=== PATIENT | male | born 1945 | race Caucasian/White ===

== ENCOUNTER 2017-05-25 06:25 | Inpatient (IN) | payer MEDICARE ==
[~2017-05-25] VITALS: Ht 170.2 cm; Wt 85.0 kg
[~2017-05-25 06:25] MED LIST: ASPI-1159 PO; ATOR20TA65 PO; CLOP75TA33 PO; DIGO125T82 PO; ENAL20TA PO; GABA-531 PO; METO-539 PO; SITA1TAB4 PO; TAMS0.4C31 PO; TRAM50TA3 PO; ZET10 PO
[2017-05-25] MEDS ORDERED: IODIXANOL 320MG/ML 200ML BOTTLE ONE (08:26)
[2017-05-25] MEDS ORDERED: LIDOCAINE HCL 1% 20ML VIAL (Pyxis) INJ ONE (08:26)
[2017-05-25] MEDS ORDERED: MIDAZOLAM HCL 2 MG/2 ML VIAL ONE (08:39)
[2017-05-25] MEDS ORDERED: FENTANYL CITRATE/PF 50MCG/ML 2ML VIAL ONE (08:39)
[2017-05-25] MEDS ORDERED: IOVERSOL 240MG/ML 100ML BOTTLE IV ONE (08:48)
[2017-05-25] MEDS ORDERED: ASPIRIN 325MG TABLET ONE (09:58)
[2017-05-25] MEDS ORDERED: CLOPIDOGREL 75MG TABLET ONE (09:58)
[2017-05-25] MEDS ORDERED: SODIUM CHLORIDE 0.45% 1,000 ML IV ONE (10:00)
[2017-05-25] MEDS ORDERED: ATROPINE SULFATE 1MG/10ML SYR IV PRN (10:00)
[2017-05-25] MEDS ORDERED: DEXTROSE 50% WATER 50ML SYRINGE IV PRN (10:00)
[2017-05-25] MEDS ORDERED: ACETAMINOPHEN 325MG TABLET PO PRN (10:00)
[2017-05-25] MEDS ORDERED: METOPROLOL TARTRATE 50MG TABLET PO SCH (11:00)
[2017-05-25] MEDS ORDERED: EZETIMIBE 10MG TABLET PO SCH ×2 (11:00→21:00)
[2017-05-25] MEDS: INSULIN LISPRO 100 UNITS/ML SUBCUT SCH ×3 (12:20→21:49)
[2017-05-25] MEDS: BLOOD SUGAR DIAGNOSTIC STRIP TEST SCH ×3 (12:29→20:37)
[2017-05-25] MEDS: DIGOXIN 125MCG TABLET PO SCH (12:37)
[2017-05-25] MEDS: GABAPENTIN 300MG CAPSULE PO SCH ×2 (12:37→17:32)
[2017-05-25] MEDS: TAMSULOSIN HCL 0.4MG SR CAPSULE PO SCH (12:37)
[2017-05-25] MEDS: TRAMADOL 50MG TABLET PO SCH ×2 (12:38→17:00)
[2017-05-25] MEDS ORDERED: HEPARIN SODIUM 1,000 UNIT/1ML VIAL IV ONE (12:57)
[2017-05-25] MEDS ORDERED: NICARDIPINE 100MCG/ML 10ML VIAL (CATH LAB) IV ONE (12:59)
[2017-05-25] MEDS ORDERED: NITROGLYCERIN 50MCG/ML 10ML VIAL (CATH LAB) IV ONE (12:59)
[2017-05-25] MEDS: ENALAPRIL 10MG TABLET PO SCH (17:32)
[2017-05-25] MEDS ORDERED: ATORVASTATIN CALCIUM 20MG TABLET PO SCH (21:00)
[2017-05-25] MEDS ORDERED: ZOLPIDEM TARTRATE 5MG TABLET PO PRN (21:00)
[2017-05-26] MEDS: BLOOD SUGAR DIAGNOSTIC STRIP TEST SCH (06:29)
[2017-05-26] MEDS: INSULIN LISPRO 100 UNITS/ML SUBCUT SCH (06:29)
[2017-05-26 07:05] LABS: BASOPHILS % 0.3 % (0.0-2.0); EOSINOPHILS % 1.3 % (0.0-5.0); HEMATOCRIT. 37.3 % (42.0-52.0); HEMOGLOBIN. 12.9 g/dL (14.0-18.0); LYMPHOCYTES % 24.2 % (20.0-50.0); MEAN CORPUSCULAR HEMOGLOBIN 32.2 pg (28.0-32.0); MEAN CORPUSCULAR VOLUME 92.8 fL (80.0-94.0); MEAN PLATELET VOLUME 8.3 fl (7.4-10.4); MONOCYTES % 8.9 % (2.0-8.0); NEUTROPHILS % 65.3 % (40.0-76.0); PLATELET 98 x1000/uL (130-400); RED BLOOD CELL COUNT 4.03 mill/uL (4.7-6.1); RED CELL DISTRIBUTION WIDTH 13.5 % (11.6-14.6)
[2017-05-26 07:10] LABS: CARBON DIOXIDE 23 mEq/L (21-32); CHLORIDE 107 mEq/L (98-107)
[2017-05-26] MEDS: TRAMADOL 50MG TABLET PO SCH (08:27)
[2017-05-26] MEDS: GABAPENTIN 300MG CAPSULE PO SCH (08:27)
[2017-05-26] MEDS: TAMSULOSIN HCL 0.4MG SR CAPSULE PO SCH (08:28)
[2017-05-26] MEDS ORDERED: ASPIRIN 81MG EC TABLET PO SCH (09:00)
[2017-05-26] MEDS ORDERED: METOPROLOL TARTRATE 25MG TABLET PO SCH (09:00)
[2017-05-26] MEDS ORDERED: MEDICATION NOT ON FORMULARY EA (Enalapril Maleate 1 TAB) PO SCH (09:00)
[2017-05-26] MEDS ORDERED: CLOPIDOGREL 75MG TABLET PO SCH (09:00)
[2017-05-26] MEDS: ENALAPRIL 10MG TABLET PO SCH (09:30)
[2017-05-26] MEDS: DIGOXIN 125MCG TABLET PO SCH (09:30)
[2017-05-26 12:00] VITALS: BP 121/56
== END 2017-05-26 12:40 | disposition home health service (06) | DRG 271 ==
LOC: CCL 06:25 → 3WST 06:26
PROVIDERS: ADMIT Specialist; ATTEND Specialist
PROC: B41F1ZZ Fluoroscopy of Right Lower Extremity Arteries using Low Osmolar Contrast (ICD-10-PCS; principal; 2017-05-25)
PROC: 04CK3ZZ Extirpation of Matter from Right Femoral Artery, Percutaneous Approach (ICD-10-PCS; 2017-05-25)
PROC: 047K3Z1 Dilation of Right Femoral Artery using Drug-Coated Balloon, Percutaneous Approach (ICD-10-PCS; 2017-05-25)
DX: E11.51 Type 2 diabetes mellitus with diabetic peripheral angiopathy without gangrene (principal); I50.22 Chronic systolic (congestive) heart failure; I11.0 Hypertensive heart disease with heart failure; I25.10 Atherosclerotic heart disease of native coronary artery without angina pectoris; E78.5 Hyperlipidemia, unspecified; I25.5 Ischemic cardiomyopathy; N40.0 Benign prostatic hyperplasia without lower urinary tract symptoms; I25.2 Old myocardial infarction; Z87.891 Personal history of nicotine dependence; Z95.1 Presence of aortocoronary bypass graft; Z95.5 Presence of coronary angioplasty implant and graft; Z95.810 Presence of automatic (implantable) cardiac defibrillator; Z79.82 Long term (current) use of aspirin; Z79.899 Other long term (current) drug therapy
CPT/HCPCS: 36415; 37225; 75710; 80048; 82962; 85025; 85347; 85730; C1724; C1725; C1726; C1769; C1887; C1893; C1894; C2623; J1644; J1815; J2250; J3010; J3490; J7030; Q9967

== ENCOUNTER 2017-08-18 12:16 | Inpatient (IN) | payer MEDICARE ==
[~2017-08-18] VITALS: Ht 167.6 cm; Wt 84.5 kg
[~2017-08-18 12:16] MED LIST changes: +IOHEXOL-350 100 ML BOTTLE ONE; -METO-539 PO; +METO50TA5 PO; +SODIUM CHLORIDE 0.9% 10ML VIAL ONE
[2017-08-18 13:19] LABS: BASOPHILS % 0.2 % (0.0-2.0); EOSINOPHILS % 1.2 % (0.0-5.0); HEMATOCRIT. 33.8 % (42.0-52.0); HEMOGLOBIN. 11.7 g/dL (14.0-18.0); LYMPHOCYTES % 24.7 % (20.0-50.0); MEAN CORPUSCULAR HEMOGLOBIN 32.1 pg (28.0-32.0); MEAN CORPUSCULAR VOLUME 92.8 fL (80.0-94.0); MEAN PLATELET VOLUME 8.2 fl (7.4-10.4); NEUTROPHILS % 61.9 % (40.0-76.0); PLATELET 83 x1000/uL (130-400); RED BLOOD CELL COUNT 3.64 mill/uL (4.7-6.1); RED CELL DISTRIBUTION WIDTH 13.2 % (11.6-14.6)
[2017-08-18 13:25] LABS: CLARITY URINE CLEAR (CLEAR); COLOR URINE DARK YELLOW (YELLOW); GLUCOSE URINE 2+ (NEGATIVE); KETONES URINE NEGATIVE (NEGATIVE); LEUKOCYTE ESTERASE URINE NEGATIVE (NEGATIVE); NITRITE URINE NEGATIVE (NEGATIVE); OCCULT BLOOD URINE NEGATIVE (NEGATIVE); PROTEIN URINE 1+ (NEGATIVE); SPECIFIC GRAVITY URINE 1.023 (1.005-1.030)
[2017-08-18 13:27] LABS: CHLORIDE 107 mEq/L (98-107)
[2017-08-18 13:30] LABS: D-DIMER 0.57 mg/L FEU (<0.50); INR 1.1; PARTIAL THROMBOPLASTIN TIME 27.3 sec (23.4-31.0); PROTHROMBIN TIME 11.8 sec (9.4-11.6)
[2017-08-18 13:32] LABS: CARBON DIOXIDE 24 mEq/L (21-32)
[2017-08-18 13:47] LABS: DIGOXIN 0.4 ng/mL (0.9-2.0)
[2017-08-18] MEDS ORDERED: ASPIRIN 325MG TABLET PO ONE (14:00)
[2017-08-18] MEDS ORDERED: ENOXAPARIN 80MG/0.8ML SYR SUBCUT SCH (15:15)
[2017-08-18 20:00] VITALS: BP 120/60
[2017-08-18 22:00] VITALS: BP 124/60
[2017-08-18] MEDS ORDERED: BISO5TAB13 PO (22:13)
[2017-08-18] MEDS ORDERED: FINA5TAB11 PO (22:13)
[2017-08-18] MEDS ORDERED: PROT20 PO (22:13)
[2017-08-18] MEDS ORDERED: VALS40TA4 PO (22:13)
[2017-08-18] MEDS ORDERED: SITA1TBM4 PO (22:13)
[2017-08-18] MEDS ORDERED: AMI2 PO (22:13)
[2017-08-18] MEDS ORDERED: CLONIDINE 0.1MG TABLET PO PRN (23:15)
[2017-08-18] MEDS ORDERED: ONDANSETRON HCL 4MG/2ML VIAL IV PRN (23:15)
[2017-08-18] MEDS ORDERED: DIPHENHYDRAMINE 50MG/ML VIAL IV PRN (23:15)
[2017-08-18] MEDS ORDERED: ACETAMINOPHEN 325MG TABLET PO PRN (23:15)
[2017-08-18] MEDS ORDERED: MAGNESIUM/ALUMINUM HYDROXIDE/SIMETHICONE 30ML UDC PO PRN (23:15)
[2017-08-19] VITALS (13 sets, daily range): BP systolic 108–149; BP diastolic 53–85
[2017-08-19] MEDS ORDERED: MAGNESIUM/ALUMINUM HYDROXIDE/SIMETHICONE 30ML UDC PO PRN (00:30)
[2017-08-19] MEDS ORDERED: ONDANSETRON HCL 4MG/2ML VIAL IV PRN (00:30)
[2017-08-19] MEDS ORDERED: DIPHENHYDRAMINE 50MG/ML VIAL IV PRN (00:30)
[2017-08-19] MEDS ORDERED: ACETAMINOPHEN 325MG TABLET PO PRN (00:30)
[2017-08-19] MEDS ORDERED: DEXTROSE 50% WATER 50ML SYRINGE IV PRN (00:45)
[2017-08-19] MEDS ORDERED: GABAPENTIN 300MG CAPSULE PO SCH (06:00)
[2017-08-19] MEDS ORDERED: SODIUM CHLORIDE 0.9% INJ 3ML FLUSH IVF SCH (06:00)
[2017-08-19] MEDS: BLOOD SUGAR DIAGNOSTIC STRIP TEST SCH ×4 (06:05→21:23)
[2017-08-19] MEDS: SODIUM CHLORIDE 0.9% INJ 3ML FLUSH IVF SCH ×3 (06:06→21:30)
[2017-08-19] MEDS: FINASTERIDE 5MG TABLET PO SCH (06:06)
[2017-08-19] MEDS: INSULIN LISPRO 100 UNITS/ML SUBCUT SCH ×4 (08:08→21:29)
[2017-08-19] MEDS: METFORMIN HCL 500MG TABLET PO SCH ×2 (08:10→17:26)
[2017-08-19] MEDS: ASPIRIN 81MG EC TABLET PO SCH (08:11)
[2017-08-19] MEDS: EZETIMIBE 10MG TABLET PO SCH (08:11)
[2017-08-19] MEDS: GABAPENTIN 300MG CAPSULE PO SCH ×3 (08:11→17:27)
[2017-08-19] MEDS: DIGOXIN 125MCG TABLET PO SCH (08:12)
[2017-08-19] MEDS: CLOPIDOGREL 75MG TABLET PO SCH (08:12)
[2017-08-19] MEDS: TAMSULOSIN HCL 0.4MG SR CAPSULE PO SCH (08:12)
[2017-08-19] MEDS: METOPROLOL TARTRATE 50MG TABLET PO SCH (08:12)
[2017-08-19] MEDS ORDERED: METOPROLOL TARTRATE 25MG TABLET PO SCH (09:00)
[2017-08-19] MEDS ORDERED: AMIODARONE HCL 200 MG TABLET PO SCH (09:00)
[2017-08-19] MEDS: TRAMADOL 50MG TABLET PO SCH ×2 (09:00→17:00)
[2017-08-19] MEDS ORDERED: ASPIRIN 81MG EC TABLET PO SCH (09:00)
[2017-08-19] MEDS ORDERED: CLOPIDOGREL 75MG TABLET PO SCH (09:00)
[2017-08-19] MEDS: POTASSIUM CHLORIDE 20MEQ TABLET SR PO SCH (12:42)
[2017-08-19] MEDS: FUROSEMIDE 40MG/4ML VIAL IVP SCH (17:26)
[2017-08-19] MEDS: AMIODARONE HCL 200 MG TABLET PO SCH (17:27)
[2017-08-19] MEDS ORDERED: ATORVASTATIN CALCIUM 20MG TABLET PO SCH (21:00)
[2017-08-19] MEDS: ATORVASTATIN CALCIUM 20MG TABLET PO SCH (21:28)
[2017-08-20] VITALS (13 sets, daily range): BP systolic 110–157; BP diastolic 37–68
[2017-08-20] MEDS: FINASTERIDE 5MG TABLET PO SCH (05:56)
[2017-08-20] MEDS: BLOOD SUGAR DIAGNOSTIC STRIP TEST SCH ×4 (05:56→21:08)
[2017-08-20] MEDS: SODIUM CHLORIDE 0.9% INJ 3ML FLUSH IVF SCH ×3 (05:56→21:10)
[2017-08-20] MEDS: FUROSEMIDE 40MG/4ML VIAL IVP SCH ×2 (05:56→17:32)
[2017-08-20 06:57] LABS: BASOPHILS % 0.3 % (0.0-2.0); EOSINOPHILS % 1.6 % (0.0-5.0); HEMATOCRIT. 34.2 % (42.0-52.0); HEMOGLOBIN. 11.8 g/dL (14.0-18.0); LYMPHOCYTES % 25.1 % (20.0-50.0); MEAN CORPUSCULAR HEMOGLOBIN 32.3 pg (28.0-32.0); MEAN CORPUSCULAR VOLUME 93.3 fL (80.0-94.0); MEAN PLATELET VOLUME 8.6 fl (7.4-10.4); MONOCYTES % 11.2 % (2.0-8.0); NEUTROPHILS % 61.8 % (40.0-76.0); PLATELET 99 x1000/uL (130-400); RED BLOOD CELL COUNT 3.66 mill/uL (4.7-6.1); RED CELL DISTRIBUTION WIDTH 13.6 % (11.6-14.6)
[2017-08-20 07:35] LABS: CARBON DIOXIDE 20 mEq/L (21-32); CHLORIDE 105 mEq/L (98-107)
[2017-08-20] MEDS: METFORMIN HCL 500MG TABLET PO SCH ×2 (07:53→17:31)
[2017-08-20] MEDS: INSULIN LISPRO 100 UNITS/ML SUBCUT SCH ×4 (07:53→21:00)
[2017-08-20 08:05] LABS: TROPONIN I 0.51 ng/mL (0.00-0.04)
[2017-08-20] MEDS: POTASSIUM CHLORIDE 20MEQ TABLET SR PO SCH (08:40)
[2017-08-20] MEDS: TAMSULOSIN HCL 0.4MG SR CAPSULE PO SCH (08:40)
[2017-08-20] MEDS: EZETIMIBE 10MG TABLET PO SCH (08:41)
[2017-08-20] MEDS: GABAPENTIN 300MG CAPSULE PO SCH ×3 (08:41→17:31)
[2017-08-20] MEDS: AMIODARONE HCL 200 MG TABLET PO SCH ×2 (08:41→17:31)
[2017-08-20] MEDS: ASPIRIN 81MG EC TABLET PO SCH (08:41)
[2017-08-20] MEDS: CLOPIDOGREL 75MG TABLET PO SCH (08:41)
[2017-08-20] MEDS: DIGOXIN 125MCG TABLET PO SCH (08:42)
[2017-08-20] MEDS: METOPROLOL TARTRATE 50MG TABLET PO SCH (08:42)
[2017-08-20] MEDS: TRAMADOL 50MG TABLET PO SCH ×2 (08:44→17:00)
[2017-08-20] MEDS ORDERED: MAGNESIUM 2 G PREMIX 50 ML IV NR (09:00)
[2017-08-20] MEDS ORDERED: AMIODARONE HCL 200 MG TABLET PO SCH (09:00)
[2017-08-20 14:17] LABS: INR 1.2
[2017-08-20] MEDS ORDERED: WARFARIN SODIUM 5MG TABLET PO SCH (18:00)
[2017-08-20] MEDS: ATORVASTATIN CALCIUM 20MG TABLET PO SCH (21:10)
[2017-08-21] VITALS (12 sets, daily range): BP systolic 114–144; BP diastolic 47–79
[2017-08-21] MEDS: SODIUM CHLORIDE 0.9% INJ 3ML FLUSH IVF SCH ×3 (05:16→21:14)
[2017-08-21 06:04] LABS: CARBON DIOXIDE 24 mEq/L (21-32); CHLORIDE 104 mEq/L (98-107)
[2017-08-21 06:17] LABS: BASOPHILS % 0.2 % (0.0-2.0); EOSINOPHILS % 1.3 % (0.0-5.0); HEMATOCRIT. 35.3 % (42.0-52.0); HEMOGLOBIN. 12.4 g/dL (14.0-18.0); LYMPHOCYTES % 26.9 % (20.0-50.0); MEAN CORPUSCULAR HEMOGLOBIN 32.3 pg (28.0-32.0); MEAN CORPUSCULAR VOLUME 92.3 fL (80.0-94.0); MEAN PLATELET VOLUME 8.2 fl (7.4-10.4); NEUTROPHILS % 61.6 % (40.0-76.0); PLATELET 116 x1000/uL (130-400); RED BLOOD CELL COUNT 3.83 mill/uL (4.7-6.1); RED CELL DISTRIBUTION WIDTH 13.3 % (11.6-14.6)
[2017-08-21] MEDS: BLOOD SUGAR DIAGNOSTIC STRIP TEST SCH ×4 (06:22→21:13)
[2017-08-21] MEDS: FUROSEMIDE 40MG/4ML VIAL IVP SCH ×2 (06:26→17:13)
[2017-08-21] MEDS: FINASTERIDE 5MG TABLET PO SCH (06:26)
[2017-08-21 06:31] LABS: INR 1.2; PROTHROMBIN TIME 12.1 sec (9.4-11.6)
[2017-08-21] MEDS: INSULIN LISPRO 100 UNITS/ML SUBCUT SCH ×4 (08:03→21:00)
[2017-08-21] MEDS: CLOPIDOGREL 75MG TABLET PO SCH (08:03)
[2017-08-21] MEDS: EZETIMIBE 10MG TABLET PO SCH (08:03)
[2017-08-21] MEDS: TAMSULOSIN HCL 0.4MG SR CAPSULE PO SCH (08:04)
[2017-08-21] MEDS: GABAPENTIN 300MG CAPSULE PO SCH ×3 (08:04→17:10)
[2017-08-21] MEDS: METFORMIN HCL 500MG TABLET PO SCH ×2 (08:04→17:10)
[2017-08-21] MEDS: METOPROLOL TARTRATE 50MG TABLET PO SCH (08:05)
[2017-08-21] MEDS: AMIODARONE HCL 200 MG TABLET PO SCH ×2 (08:05→17:10)
[2017-08-21] MEDS: POTASSIUM CHLORIDE 20MEQ TABLET SR PO SCH (08:05)
[2017-08-21] MEDS: TRAMADOL 50MG TABLET PO SCH ×2 (08:06→16:25)
[2017-08-21] MEDS: DIGOXIN 125MCG TABLET PO SCH (08:06)
[2017-08-21] MEDS: ASPIRIN 81MG EC TABLET PO SCH (08:06)
[2017-08-21] MEDS ORDERED: WARFARIN SODIUM 5MG TABLET PO SCH (18:00)
[2017-08-21] MEDS: ATORVASTATIN CALCIUM 20MG TABLET PO SCH (21:10)
[2017-08-22] VITALS (12 sets, daily range): BP systolic 112–143; BP diastolic 52–87
[2017-08-22] MEDS: AMIODARONE HCL 900 MG in DEXT 5% WATER 482 ML IV SCH ×2 (00:09→06:47)
[2017-08-22 05:57] LABS: INR 1.3; PROTHROMBIN TIME 13.2 sec (9.4-11.6)
[2017-08-22] MEDS: SODIUM CHLORIDE 0.9% INJ 3ML FLUSH IVF SCH ×2 (06:24→21:16)
[2017-08-22] MEDS: FUROSEMIDE 40MG/4ML VIAL IVP SCH ×2 (06:24→16:37)
[2017-08-22] MEDS: BLOOD SUGAR DIAGNOSTIC STRIP TEST SCH ×4 (06:24→21:16)
[2017-08-22] MEDS: FINASTERIDE 5MG TABLET PO SCH ×2 (06:24→08:42)
[2017-08-22] MEDS: INSULIN LISPRO 100 UNITS/ML SUBCUT SCH ×4 (07:20→21:16)
[2017-08-22 07:43] LABS: BASOPHILS % 0.4 % (0.0-2.0); EOSINOPHILS % 1.5 % (0.0-5.0); HEMATOCRIT. 35.5 % (42.0-52.0); HEMOGLOBIN. 12.1 g/dL (14.0-18.0); LYMPHOCYTES % 23.3 % (20.0-50.0); MEAN CORPUSCULAR VOLUME 93.9 fL (80.0-94.0); MEAN PLATELET VOLUME 8.6 fl (7.4-10.4); MONOCYTES % 10.5 % (2.0-8.0); NEUTROPHILS % 64.3 % (40.0-76.0); PLATELET 117 x1000/uL (130-400); RED BLOOD CELL COUNT 3.78 mill/uL (4.7-6.1); RED CELL DISTRIBUTION WIDTH 13.4 % (11.6-14.6)
[2017-08-22 07:52] LABS: CARBON DIOXIDE 21 mEq/L (21-32); CHLORIDE 103 mEq/L (98-107)
[2017-08-22] MEDS: METFORMIN HCL 500MG TABLET PO SCH ×2 (08:40→16:36)
[2017-08-22] MEDS: POTASSIUM CHLORIDE 20MEQ TABLET SR PO SCH (08:40)
[2017-08-22] MEDS: CLOPIDOGREL 75MG TABLET PO SCH (08:40)
[2017-08-22] MEDS: EZETIMIBE 10MG TABLET PO SCH (08:41)
[2017-08-22] MEDS: METOPROLOL TARTRATE 50MG TABLET PO SCH (08:41)
[2017-08-22] MEDS: TAMSULOSIN HCL 0.4MG SR CAPSULE PO SCH (08:41)
[2017-08-22] MEDS: GABAPENTIN 300MG CAPSULE PO SCH ×3 (08:41→16:36)
[2017-08-22] MEDS: AMIODARONE HCL 200 MG TABLET PO SCH ×2 (08:42→16:36)
[2017-08-22] MEDS: ASPIRIN 81MG EC TABLET PO SCH (08:42)
[2017-08-22] MEDS: DIGOXIN 125MCG TABLET PO SCH (08:42)
[2017-08-22] MEDS: TRAMADOL 50MG TABLET PO SCH ×2 (08:49→16:38)
[2017-08-22] MEDS ORDERED: REGADENOSON 0.4 MG/5 ML IV NR (09:45)
[2017-08-22] MEDS ORDERED: REGADENOSON 0.4 MG/5 ML IV ONE (11:40)
[2017-08-22] MEDS ORDERED: WARFARIN SODIUM 7.5MG TABLET PO NR (18:00)
[2017-08-22] MEDS: ATORVASTATIN CALCIUM 20MG TABLET PO SCH (21:17)
[2017-08-23] VITALS (18 sets, daily range): BP systolic 127–151; BP diastolic 57–74
[2017-08-23] MEDS: FINASTERIDE 5MG TABLET PO SCH (06:12)
[2017-08-23] MEDS: SODIUM CHLORIDE 0.9% INJ 3ML FLUSH IVF SCH (06:13)
[2017-08-23] MEDS: BLOOD SUGAR DIAGNOSTIC STRIP TEST SCH ×2 (06:13→11:50)
[2017-08-23] MEDS: FUROSEMIDE 40MG/4ML VIAL IVP SCH (06:41)
[2017-08-23 07:06] LABS: BASOPHILS % 0.3 % (0.0-2.0); EOSINOPHILS % 0.8 % (0.0-5.0); HEMATOCRIT. 35.4 % (42.0-52.0); HEMOGLOBIN. 12.3 g/dL (14.0-18.0); MEAN CORPUSCULAR HEMOGLOBIN 32.1 pg (28.0-32.0); MEAN CORPUSCULAR VOLUME 92.7 fL (80.0-94.0); MEAN PLATELET VOLUME 8.2 fl (7.4-10.4); MONOCYTES % 12.5 % (2.0-8.0); NEUTROPHILS % 63.4 % (40.0-76.0); PLATELET 124 x1000/uL (130-400); RED BLOOD CELL COUNT 3.82 mill/uL (4.7-6.1); RED CELL DISTRIBUTION WIDTH 13.3 % (11.6-14.6)
[2017-08-23] MEDS: INSULIN LISPRO 100 UNITS/ML SUBCUT SCH ×2 (07:20→12:20)
[2017-08-23] MEDS: GABAPENTIN 300MG CAPSULE PO SCH ×2 (07:47→13:23)
[2017-08-23] MEDS: METFORMIN HCL 500MG TABLET PO SCH (07:47)
[2017-08-23] MEDS: CLOPIDOGREL 75MG TABLET PO SCH (07:48)
[2017-08-23] MEDS: AMIODARONE HCL 200 MG TABLET PO SCH (07:48)
[2017-08-23] MEDS: TAMSULOSIN HCL 0.4MG SR CAPSULE PO SCH (07:49)
[2017-08-23] MEDS: DIGOXIN 125MCG TABLET PO SCH (07:49)
[2017-08-23] MEDS: EZETIMIBE 10MG TABLET PO SCH (07:49)
[2017-08-23] MEDS: TRAMADOL 50MG TABLET PO SCH (07:50)
[2017-08-23] MEDS: POTASSIUM CHLORIDE 20MEQ TABLET SR PO SCH (07:50)
[2017-08-23] MEDS: METOPROLOL TARTRATE 50MG TABLET PO SCH (07:51)
[2017-08-23] MEDS: ASPIRIN 81MG EC TABLET PO SCH (07:51)
[2017-08-23] MEDS ORDERED: WARFARIN SODIUM 7.5MG TABLET PO NR (18:00)
== END 2017-08-23 15:30 | disposition home health service (06) | DRG 308 ==
LOC: ER 12:25 → 3WST 17:06 → EDBEDREQ 17:08 → EDBEDREQTM 17:08 → ENRESERV 17:16
PROVIDERS: ADMIT Internal Medicine; ATTEND Internal Medicine
DX: I47.2 Ventricular tachycardia (principal); I50.23 Acute on chronic systolic (congestive) heart failure; E11.51 Type 2 diabetes mellitus with diabetic peripheral angiopathy without gangrene; D69.6 Thrombocytopenia, unspecified; I25.5 Ischemic cardiomyopathy; I51.3 Intracardiac thrombosis, not elsewhere classified; I25.10 Atherosclerotic heart disease of native coronary artery without angina pectoris; I11.0 Hypertensive heart disease with heart failure; N40.0 Benign prostatic hyperplasia without lower urinary tract symptoms; I49.9 Cardiac arrhythmia, unspecified; E78.5 Hyperlipidemia, unspecified; I25.2 Old myocardial infarction; Z79.82 Long term (current) use of aspirin; Z79.899 Other long term (current) drug therapy; Z95.1 Presence of aortocoronary bypass graft; Z95.5 Presence of coronary angioplasty implant and graft; Z95.810 Presence of automatic (implantable) cardiac defibrillator; Z87.891 Personal history of nicotine dependence; Z83.3 Family history of diabetes mellitus; Z82.49 Family history of ischemic heart disease and other diseases of the circulatory system
CPT/HCPCS: 36415; 71010; 71275; 78452; 80048; 80053; 80076; 80162; 81001; 82962; 83036; 83735; 83880; 84484; 85025; 85379; 85610; 85730; 86850; 86900; 93005; 93017; 93306; 93970; 96372; 99285; A4216; A9500; J0282; J1650; J1815; J1940; J2785; J3475; J7060; Q9967

== ENCOUNTER 2017-10-22 11:04 | Emergency (ER) | payer MEDICARE ==
[~2017-10-22] VITALS: Ht 170.2 cm; Wt 84.0 kg
[~2017-10-22 11:04] MED LIST changes: -CLOP75TA33 PO; -ENAL20TA PO; +FINA5TAB11 PO; -IOHEXOL-350 100 ML BOTTLE ONE; -METO50TA5 PO; +PROT20 PO; +SITA1TBM4 PO; -SODIUM CHLORIDE 0.9% 10ML VIAL ONE
[2017-10-22 12:46] LABS: BASOPHILS % 0.3 % (0.0-2.0); EOSINOPHILS % 0.7 % (0.0-5.0); HEMATOCRIT. 26.9 % (42.0-52.0); HEMOGLOBIN. 8.7 g/dL (14.0-18.0); LYMPHOCYTES % 16.8 % (20.0-50.0); MEAN CORPUSCULAR HEMOGLOBIN 30.2 pg (28.0-32.0); MEAN CORPUSCULAR VOLUME 93.1 fL (80.0-94.0); MEAN PLATELET VOLUME 7.5 fl (7.4-10.4); MONOCYTES % 10.5 % (2.0-8.0); NEUTROPHILS % 71.7 % (40.0-76.0); PLATELET 131 x1000/uL (130-400); RED BLOOD CELL COUNT 2.89 mill/uL (4.7-6.1); RED CELL DISTRIBUTION WIDTH 17.3 % (11.6-14.6)
[2017-10-22 12:48] LABS: INR 1.3; PARTIAL THROMBOPLASTIN TIME 34.2 sec (23.4-31.0); PROTHROMBIN TIME 13.8 sec (9.4-11.6)
[2017-10-22 12:49] LABS: CHLORIDE 108 mEq/L (98-107)
[2017-10-22 12:56] LABS: CARBON DIOXIDE 23 mEq/L (21-32)
[2017-10-22 17:06] VITALS: BP 114/79
== END 2017-10-22 17:08 | disposition home or self-care (01) ==
LOC: ER 13:07
DX: D64.9 Anemia, unspecified (principal); R05 Cough; R07.9 Chest pain, unspecified; E11.9 Type 2 diabetes mellitus without complications; I10 Essential (primary) hypertension; Z79.82 Long term (current) use of aspirin; Z87.19 Personal history of other diseases of the digestive system; Z87.891 Personal history of nicotine dependence; Z95.0 Presence of cardiac pacemaker; Z95.810 Presence of automatic (implantable) cardiac defibrillator
CPT/HCPCS: 36415; 71010; 80053; 83690; 85018; 85025; 85610; 85730; 86850; 86900; 99285

== ENCOUNTER 2017-11-22 11:27 | Inpatient (IN) | payer MEDICARE, MEDICAID ==
[~2017-11-22] VITALS: Ht 172.7 cm; Wt 75.3 kg
[2017-11-22] MEDS ORDERED: FINA5TAB11 PO (12:30)
[2017-11-22] MEDS ORDERED: AMIO100T4 PO (12:30)
[2017-11-22] MEDS ORDERED: CLOP75TA33 PO (12:30)
[2017-11-22] MEDS ORDERED: CARV12.545 PO (12:30)
[2017-11-22] MEDS ORDERED: FURO40TA5 PO (12:30)
[2017-11-22] MEDS ORDERED: IRON (12:30)
[2017-11-22] MEDS ORDERED: POTA10CA42 PO (12:30)
[2017-11-22 14:23] LABS: HEMATOCRIT. 28.4 % (42.0-52.0); HEMOGLOBIN. 8.9 g/dL (14.0-18.0); MEAN CORPUSCULAR HEMOGLOBIN 27.5 pg (28.0-32.0); MEAN CORPUSCULAR VOLUME 88.2 fL (80.0-94.0); MEAN PLATELET VOLUME 8.8 fl (7.4-10.4); PLATELET 111 x1000/uL (130-400); RED BLOOD CELL COUNT 3.23 mill/uL (4.7-6.1); RED CELL DISTRIBUTION WIDTH 19.1 % (11.6-14.6)
[2017-11-22 14:32] LABS: INR 1.3; PROTHROMBIN TIME 13.4 sec (9.4-11.6)
[2017-11-22 14:37] LABS: CARBON DIOXIDE 22 mEq/L (21-32); CHLORIDE 102 mEq/L (98-107)
[2017-11-22 14:50] LABS: NUCLEATED RED BLOOD CELLS 1 /100 WBC; PLATELET ESTIMATE SLIGHTLY DECREASED
[2017-11-22] MEDS ORDERED: SODIUM CHLORIDE 0.9% 1,000 ML IV ONE (14:54)
[2017-11-23] VITALS (7 sets, daily range): BP systolic 93–105; BP diastolic 52–60
[2017-11-23] MEDS ORDERED: ONDANSETRON HCL 4MG/2ML VIAL IV PRN (05:45)
[2017-11-23] MEDS ORDERED: HYDROCODONE/ACETAMINOPHEN 5/325MG TABLET PO PRN (05:45)
[2017-11-23] MEDS ORDERED: ACETAMINOPHEN 325MG TABLET PO PRN (05:45)
[2017-11-23] MEDS ORDERED: AMLODIPINE 10MG TABLET PO SCH (09:00)
[2017-11-23] MEDS ORDERED: CLOPIDOGREL 75MG TABLET PO SCH (10:45)
[2017-11-23] MEDS ORDERED: DEXTROSE 50% WATER 50ML SYRINGE IV PRN (11:00)
[2017-11-23 11:01] LABS: CLARITY URINE CLEAR (CLEAR); COLOR URINE YELLOW (YELLOW); KETONES URINE NEGATIVE (NEGATIVE); LEUKOCYTE ESTERASE URINE NEGATIVE (NEGATIVE); NITRITE URINE NEGATIVE (NEGATIVE); OCCULT BLOOD URINE 1+ (NEGATIVE); PROTEIN URINE 1+ (NEGATIVE); SPECIFIC GRAVITY URINE 1.017 (1.005-1.030)
[2017-11-23] MEDS: BLOOD SUGAR DIAGNOSTIC STRIP TEST SCH ×3 (12:34→21:50)
[2017-11-23] MEDS: FINASTERIDE 5MG TABLET PO SCH (12:57)
[2017-11-23] MEDS: GABAPENTIN 300MG CAPSULE PO SCH ×2 (12:58→16:42)
[2017-11-23] MEDS: TAMSULOSIN HCL 0.4MG SR CAPSULE PO SCH (13:01)
[2017-11-23] MEDS: INSULIN LISPRO 100 UNITS/ML SUBCUT SCH ×3 (13:04→21:56)
[2017-11-23] MEDS: SODIUM CHLORIDE 0.45% 1,000 ML IV SCH (14:48)
[2017-11-23] MEDS ORDERED: IPRATROPIUM/ALBUTEROL 0.5-3(2.5)MG/3ML NEB HHN PRN (16:30)
[2017-11-23] MEDS: FUROSEMIDE 40MG/4ML VIAL IVP SCH ×2 (16:42→21:50)
[2017-11-23 16:58] LABS: CREATINE KINASE 364 IU/L (39-308)
[2017-11-23] MEDS ORDERED: DIGOXIN 125MCG TABLET PO SCH (18:00)
[2017-11-23] MEDS ORDERED: CARVEDILOL 12.5MG TABLET PO SCH (21:00)
[2017-11-23] MEDS: CARVEDILOL 6.25 MG TABLET PO SCH (21:00)
[2017-11-23] MEDS: ATORVASTATIN CALCIUM 20MG TABLET PO SCH (21:50)
[2017-11-24] VITALS: BP 92/57
[2017-11-24 04:00] VITALS: BP 102/52
[2017-11-24] MEDS: BLOOD SUGAR DIAGNOSTIC STRIP TEST SCH ×4 (06:55→21:16)
[2017-11-24 07:16] LABS: CHLORIDE 102 mEq/L (98-107); HEMATOCRIT. 24.3 % (42.0-52.0); HEMOGLOBIN. 7.8 g/dL (14.0-18.0); MEAN CORPUSCULAR HEMOGLOBIN 27.8 pg (28.0-32.0); MEAN CORPUSCULAR VOLUME 87.1 fL (80.0-94.0); MEAN PLATELET VOLUME 8.6 fl (7.4-10.4); PLATELET 103 x1000/uL (130-400); RED CELL DISTRIBUTION WIDTH 18.9 % (11.6-14.6)
[2017-11-24 07:29] VITALS: BP 99/58
[2017-11-24 07:29] LABS: CARBON DIOXIDE 19 mEq/L (21-32)
[2017-11-24] MEDS: INSULIN LISPRO 100 UNITS/ML SUBCUT SCH ×4 (07:50→21:27)
[2017-11-24] MEDS: GABAPENTIN 300MG CAPSULE PO SCH ×3 (09:00→16:58)
[2017-11-24] MEDS ORDERED: ASPIRIN 81MG EC TABLET PO SCH (09:00)
[2017-11-24] MEDS: CARVEDILOL 6.25 MG TABLET PO SCH ×2 (09:00→21:00)
[2017-11-24] MEDS: FUROSEMIDE 40MG/4ML VIAL IVP SCH (09:22)
[2017-11-24] MEDS: EZETIMIBE 10MG TABLET PO SCH (09:23)
[2017-11-24] MEDS: FINASTERIDE 5MG TABLET PO SCH (09:23)
[2017-11-24] MEDS: AMLODIPINE 2.5MG TABLET PO SCH (09:23)
[2017-11-24] MEDS: TAMSULOSIN HCL 0.4MG SR CAPSULE PO SCH (09:23)
[2017-11-24 10:26] LABS: NUCLEATED RED BLOOD CELLS 1 /100 WBC; PLATELET ESTIMATE SLIGHTLY DECREASED
[2017-11-24] MEDS: IPRATROPIUM/ALBUTEROL 0.5-3(2.5)MG/3ML NEB HHN SCH ×3 (11:40→20:58)
[2017-11-24 12:00] VITALS: BP 101/63
[2017-11-24] MEDS: SODIUM CHLORIDE 0.45% 1,000 ML IV SCH (12:30)
[2017-11-24] MEDS: AMIODARONE HCL 200 MG TABLET PO SCH (13:04)
[2017-11-24 16:00] VITALS: BP 97/47
[2017-11-24 20:41] VITALS: BP 93/55
[2017-11-24] MEDS: ATORVASTATIN CALCIUM 20MG TABLET PO SCH (21:17)
[2017-11-25 00:28] VITALS: BP 106/60
[2017-11-25 04:00] VITALS: BP 107/55
[2017-11-25] MEDS: BLOOD SUGAR DIAGNOSTIC STRIP TEST SCH ×4 (06:53→21:32)
[2017-11-25 07:01] LABS: HEMATOCRIT. 24.6 % (42.0-52.0); HEMOGLOBIN. 8.1 g/dL (14.0-18.0); MEAN CORPUSCULAR HEMOGLOBIN 28.6 pg (28.0-32.0); MEAN CORPUSCULAR VOLUME 87.2 fL (80.0-94.0); MEAN PLATELET VOLUME 8.5 fl (7.4-10.4); PLATELET 123 x1000/uL (130-400); RED BLOOD CELL COUNT 2.82 mill/uL (4.7-6.1)
[2017-11-25] MEDS: INSULIN LISPRO 100 UNITS/ML SUBCUT SCH ×4 (07:50→21:38)
[2017-11-25] MEDS: IPRATROPIUM/ALBUTEROL 0.5-3(2.5)MG/3ML NEB HHN SCH ×4 (07:57→21:39)
[2017-11-25 08:00] VITALS: BP 106/66
[2017-11-25] MEDS: GABAPENTIN 300MG CAPSULE PO SCH ×3 (08:53→17:00)
[2017-11-25] MEDS: TAMSULOSIN HCL 0.4MG SR CAPSULE PO SCH (08:53)
[2017-11-25] MEDS: FINASTERIDE 5MG TABLET PO SCH (08:53)
[2017-11-25] MEDS: AMLODIPINE 2.5MG TABLET PO SCH (08:53)
[2017-11-25] MEDS: CARVEDILOL 6.25 MG TABLET PO SCH ×2 (08:53→21:00)
[2017-11-25] MEDS: AMIODARONE HCL 200 MG TABLET PO SCH (08:53)
[2017-11-25] MEDS: EZETIMIBE 10MG TABLET PO SCH (08:53)
[2017-11-25] MEDS ORDERED: FUROSEMIDE 40MG/4ML VIAL IVP SCH (09:00)
[2017-11-25] MEDS ORDERED: LIDOCAINE HCL 1% 20ML VIAL (Pyxis) INJ ONE ×2 (09:25→09:27)
[2017-11-25] MEDS ORDERED: SODIUM BICARBONATE 4% (2.4MEQ) 5ML VIAL IV ONE (09:27)
[2017-11-25] MEDS ORDERED: IOHEXOL-300 50 ML BOTTLE IV ONE (10:27)
[2017-11-25 11:50] VITALS: BP 106/80
[2017-11-25 12:55] LABS: BG BASE EXCESS -5.8 mmol/L (-2.0-2.0); BG CARBOXYHEMOGLOBIN 0.4 % (0.5-1.5); BG DEOXYHEMOGLOBIN 1.8 % (0.0-5.0); BG HCO3 ACT 18.3 mmol/L (22.0-26.0); BG METHEMOGLOBIN 0.5 % (0.0-1.5); BG OXYGEN SATURATION 98.2 % (92.0-98.5); BG OXYHEMOGLOBIN 97.3 % (94.0-97.0); BG PCO2 30.9 mmHg (35.0-45.0); BG PH 7.391 (7.350-7.450); BG PO2 121.3 mmHg (75.0-100.0); BG SAMPLE SITE RIGHT BRACHIAL; BG TOTAL HEMOGLOBIN 8.7 g/dL (12.0-18.0); BG VENT MODE NASAL CANNULA
[2017-11-25 13:24] LABS: INR 1.4; PARTIAL THROMBOPLASTIN TIME 28.3 sec (23.4-31.0); PROTHROMBIN TIME 14.7 sec (9.4-11.6)
[2017-11-25] MEDS ORDERED: HEPARIN SODIUM 1,000 UNIT/1ML VIAL IV NR (15:15)
[2017-11-25 16:00] VITALS: BP 109/58
[2017-11-25 20:00] VITALS: BP 109/46
[2017-11-25] MEDS: ATORVASTATIN CALCIUM 20MG TABLET PO SCH (21:30)
[2017-11-26] VITALS: BP 104/50
[2017-11-26 04:00] VITALS: BP 103/59
[2017-11-26 06:39] LABS: HEMATOCRIT. 23.9 % (42.0-52.0); HEMOGLOBIN. 7.5 g/dL (14.0-18.0); MEAN CORPUSCULAR VOLUME 86.4 fL (80.0-94.0); MEAN PLATELET VOLUME 8.2 fl (7.4-10.4); PLATELET 73 x1000/uL (130-400); RED BLOOD CELL COUNT 2.77 mill/uL (4.7-6.1); RED CELL DISTRIBUTION WIDTH 18.9 % (11.6-14.6)
[2017-11-26] MEDS: BLOOD SUGAR DIAGNOSTIC STRIP TEST SCH ×4 (06:40→21:20)
[2017-11-26] MEDS: IPRATROPIUM/ALBUTEROL 0.5-3(2.5)MG/3ML NEB HHN SCH ×4 (07:40→21:37)
[2017-11-26 07:53] VITALS: BP 102/61
[2017-11-26] MEDS ORDERED: GUAIFENESIN 200MG/10ML SUGAR FREE UDC PO PRN (08:00)
[2017-11-26] MEDS ORDERED: IPRATROPIUM/ALBUTEROL 0.5-3(2.5)MG/3ML NEB HHN PRN (08:15)
[2017-11-26 08:17] LABS: PHOSPHORUS 5.3 mg/dL (2.5-4.9)
[2017-11-26] MEDS: AMLODIPINE 2.5MG TABLET PO SCH (09:00)
[2017-11-26] MEDS: TAMSULOSIN HCL 0.4MG SR CAPSULE PO SCH (09:00)
[2017-11-26] MEDS: FINASTERIDE 5MG TABLET PO SCH (09:00)
[2017-11-26] MEDS: CARVEDILOL 6.25 MG TABLET PO SCH ×2 (09:00→20:21)
[2017-11-26] MEDS: GABAPENTIN 300MG CAPSULE PO SCH ×3 (09:00→16:58)
[2017-11-26] MEDS: AMIODARONE HCL 200 MG TABLET PO SCH (09:00)
[2017-11-26] MEDS: EZETIMIBE 10MG TABLET PO SCH (09:00)
[2017-11-26 09:06] LABS: ANTI-NUCLEAR ANTIBODIES DIRECT Positive (Negative)
[2017-11-26] MEDS: INSULIN LISPRO 100 UNITS/ML SUBCUT SCH ×4 (09:11→21:26)
[2017-11-26 10:12] LABS: COMPLEMENT C3 68 mg/dL (82-167)
[2017-11-26 11:50] VITALS: BP 102/64
[2017-11-26 11:53] LABS: HEPATITIS B SURFACE ANTIGEN NEGATIVE
[2017-11-26 12:21] LABS: HEPATITIS B CORE AB IGM NEGATIVE
[2017-11-26 12:23] LABS: HEPATITIS A AB IGM NEGATIVE (NEGATIVE)
[2017-11-26 13:39] LABS: PLATELET ESTIMATE SLIGHTLY DECREASED
[2017-11-26 14:50] LABS: PLATELET ESTIMATE DECREASED
[2017-11-26] MEDS: METHYLPREDNISOLONE SOD SUCC 125 MG/2 ML VIAL IV SCH (17:15)
[2017-11-26 20:00] VITALS: BP 94/49
[2017-11-26] MEDS: ATORVASTATIN CALCIUM 20MG TABLET PO SCH (21:16)
[2017-11-26] MEDS: GUAIFENESIN 600MG ER TABLET PO SCH (21:16)
[2017-11-27] VITALS (15 sets, daily range): BP systolic 91–111; BP diastolic 50–72
[2017-11-27] MEDS: ACETYLCYSTEINE 100MG/ML 10% VIAL 4ML INH SCH ×2 (00:13→01:18)
[2017-11-27] MEDS: METHYLPREDNISOLONE SOD SUCC 125 MG/2 ML VIAL IV SCH ×4 (00:38→18:25)
[2017-11-27] MEDS: IPRATROPIUM/ALBUTEROL 0.5-3(2.5)MG/3ML NEB HHN SCH ×6 (01:18→21:45)
[2017-11-27] MEDS: BLOOD SUGAR DIAGNOSTIC STRIP TEST SCH ×4 (06:54→21:28)
[2017-11-27 07:21] LABS: HEMATOCRIT. 23.4 % (42.0-52.0); HEMOGLOBIN. 7.2 g/dL (14.0-18.0); MEAN CORPUSCULAR HEMOGLOBIN 26.4 pg (28.0-32.0); MEAN CORPUSCULAR VOLUME 86.2 fL (80.0-94.0); RED BLOOD CELL COUNT 2.72 mill/uL (4.7-6.1); RED CELL DISTRIBUTION WIDTH 18.8 % (11.6-14.6)
[2017-11-27] MEDS ORDERED: ACETAMINOPHEN 325MG TABLET PO PRN (09:00)
[2017-11-27] MEDS ORDERED: DIPHENHYDRAMINE 50MG CAPSULE PO NR (09:00)
[2017-11-27] MEDS: GABAPENTIN 300MG CAPSULE PO SCH ×3 (09:00→16:36)
[2017-11-27] MEDS: TAMSULOSIN HCL 0.4MG SR CAPSULE PO SCH (09:06)
[2017-11-27] MEDS: EZETIMIBE 10MG TABLET PO SCH (09:06)
[2017-11-27] MEDS: CARVEDILOL 6.25 MG TABLET PO SCH ×2 (09:07→21:00)
[2017-11-27] MEDS: AMLODIPINE 2.5MG TABLET PO SCH (09:07)
[2017-11-27] MEDS: AMIODARONE HCL 200 MG TABLET PO SCH (09:07)
[2017-11-27] MEDS: FINASTERIDE 5MG TABLET PO SCH (09:07)
[2017-11-27] MEDS: INSULIN LISPRO 100 UNITS/ML SUBCUT SCH ×4 (09:11→21:22)
[2017-11-27 10:34] LABS: PLATELET ESTIMATE MARKEDLY DECREASED
[2017-11-27] MEDS: GUAIFENESIN 600MG ER TABLET PO SCH ×2 (10:43→21:16)
[2017-11-27 11:03] LABS: PLATELET 33 x1000/uL (130-400)
[2017-11-27] MEDS ORDERED: BISACODYL 5MG TABLET PO PRN (15:45)
[2017-11-27] MEDS ORDERED: DOCUSATE SODIUM 250MG CAPSULE PO NR (15:52)
[2017-11-27 17:27] LABS: BG BASE EXCESS -3.9 mmol/L (-2.0-2.0); BG CARBOXYHEMOGLOBIN 0.3 % (0.5-1.5); BG DEOXYHEMOGLOBIN 1.8 % (0.0-5.0); BG FRACTION INSPIRED OXYGEN 32; BG HCO3 ACT 19.6 mmol/L (22.0-26.0); BG METHEMOGLOBIN 0.4 % (0.0-1.5); BG OXYGEN SATURATION 98.2 % (92.0-98.5); BG OXYHEMOGLOBIN 97.5 % (94.0-97.0); BG PH 7.434 (7.350-7.450); BG PO2 120.1 mmHg (75.0-100.0); BG SAMPLE SITE RIGHT BRACHIAL; BG TOTAL HEMOGLOBIN 8.9 g/dL (12.0-18.0); BG VENT MODE NASAL CANNULA
[2017-11-27] MEDS: ATORVASTATIN CALCIUM 20MG TABLET PO SCH (21:16)
[2017-11-28] VITALS (32 sets, daily range): BP systolic 91–120; BP diastolic 41–73
[2017-11-28] MEDS: IPRATROPIUM/ALBUTEROL 0.5-3(2.5)MG/3ML NEB HHN SCH ×6 (00:13→21:17)
[2017-11-28] MEDS: METHYLPREDNISOLONE SOD SUCC 125 MG/2 ML VIAL IV SCH ×5 (00:59→23:38)
[2017-11-28] MEDS: BLOOD SUGAR DIAGNOSTIC STRIP TEST SCH ×4 (06:21→20:51)
[2017-11-28 06:26] LABS: HEMOGLOBIN. 7.8 g/dL (14.0-18.0); MEAN CORPUSCULAR HEMOGLOBIN 25.6 pg (28.0-32.0); MEAN CORPUSCULAR VOLUME 84.6 fL (80.0-94.0); MEAN PLATELET VOLUME 7.8 fl (7.4-10.4); PLATELET 67 x1000/uL (130-400); RED BLOOD CELL COUNT 3.07 mill/uL (4.7-6.1); RED CELL DISTRIBUTION WIDTH 19.3 % (11.6-14.6)
[2017-11-28 06:31] LABS: INR 1.3; PARTIAL THROMBOPLASTIN TIME 28.2 sec (23.4-31.0); PROTHROMBIN TIME 13.7 sec (9.4-11.6)
[2017-11-28] MEDS: INSULIN LISPRO 100 UNITS/ML SUBCUT SCH ×4 (07:20→20:55)
[2017-11-28] MEDS: CARVEDILOL 6.25 MG TABLET PO SCH ×2 (08:10→20:51)
[2017-11-28] MEDS: AMLODIPINE 2.5MG TABLET PO SCH (08:11)
[2017-11-28] MEDS: TAMSULOSIN HCL 0.4MG SR CAPSULE PO SCH (08:17)
[2017-11-28] MEDS: GUAIFENESIN 600MG ER TABLET PO SCH ×2 (08:17→20:50)
[2017-11-28] MEDS: EZETIMIBE 10MG TABLET PO SCH (08:17)
[2017-11-28] MEDS: DOCUSATE SODIUM 250MG CAPSULE PO SCH (08:18)
[2017-11-28] MEDS: GABAPENTIN 300MG CAPSULE PO SCH ×3 (08:18→17:27)
[2017-11-28] MEDS: FINASTERIDE 5MG TABLET PO SCH (08:18)
[2017-11-28] MEDS: AMIODARONE HCL 200 MG TABLET PO SCH (08:18)
[2017-11-28] MEDS: ACETYLCYSTEINE 100MG/ML 10% VIAL 4ML INH SCH ×2 (08:40→16:00)
[2017-11-28 12:05] LABS: PLATELET ESTIMATE DECREASED
[2017-11-28] MEDS ORDERED: SODIUM BICARBONATE 4% (2.4MEQ) 5ML VIAL IV ONE ×2 (13:05→14:14)
[2017-11-28] MEDS ORDERED: LIDOCAINE HCL 1% 20ML VIAL (Pyxis) INJ ONE ×2 (13:05→14:13)
[2017-11-28] MEDS ORDERED: HEPARIN 1000 UNITS/ML 10ML ONE (13:05)
[2017-11-28] MEDS ORDERED: CEFAZOLIN 1000MG PREMIX 50 ML IV ONE (13:13)
[2017-11-28] MEDS ORDERED: FENTANYL CITRATE/PF 50MCG/ML 2ML VIAL ONE (13:13)
[2017-11-28] MEDS ORDERED: CEFAZOLIN 1000MG PREMIX 50 ML IV SCH (13:30)
[2017-11-28] MEDS ORDERED: FENTANYL CITRATE/PF 50MCG/ML 2ML VIAL IV ONE (13:35)
[2017-11-28] MEDS: ATORVASTATIN CALCIUM 20MG TABLET PO SCH (20:51)
[2017-11-29] VITALS (12 sets, daily range): BP systolic 93–123; BP diastolic 51–74
[2017-11-29] MEDS: IPRATROPIUM/ALBUTEROL 0.5-3(2.5)MG/3ML NEB HHN SCH ×6 (00:43→20:30)
[2017-11-29] MEDS: ACETYLCYSTEINE 100MG/ML 10% VIAL 4ML INH SCH ×3 (00:44→17:20)
[2017-11-29] MEDS: METHYLPREDNISOLONE SOD SUCC 125 MG/2 ML VIAL IV SCH (05:58)
[2017-11-29] MEDS: BLOOD SUGAR DIAGNOSTIC STRIP TEST SCH ×5 (06:50→21:12)
[2017-11-29] MEDS: INSULIN LISPRO 100 UNITS/ML SUBCUT SCH ×4 (07:54→21:13)
[2017-11-29 07:58] LABS: HEMATOCRIT. 26.4 % (42.0-52.0); HEMOGLOBIN. 8.4 g/dL (14.0-18.0); MEAN CORPUSCULAR HEMOGLOBIN 26.7 pg (28.0-32.0); MEAN PLATELET VOLUME 9.1 fl (7.4-10.4); PLATELET 69 x1000/uL (130-400); RED BLOOD CELL COUNT 3.14 mill/uL (4.7-6.1); RED CELL DISTRIBUTION WIDTH 19.2 % (11.6-14.6)
[2017-11-29] MEDS: GUAIFENESIN 600MG ER TABLET PO SCH ×2 (08:46→21:11)
[2017-11-29] MEDS: EZETIMIBE 10MG TABLET PO SCH (08:46)
[2017-11-29] MEDS: GABAPENTIN 300MG CAPSULE PO SCH ×3 (08:46→17:09)
[2017-11-29] MEDS: DOCUSATE SODIUM 250MG CAPSULE PO SCH (08:46)
[2017-11-29] MEDS: CARVEDILOL 6.25 MG TABLET PO SCH ×2 (08:47→21:12)
[2017-11-29] MEDS: AMLODIPINE 2.5MG TABLET PO SCH (08:47)
[2017-11-29] MEDS: FINASTERIDE 5MG TABLET PO SCH (08:47)
[2017-11-29] MEDS: TAMSULOSIN HCL 0.4MG SR CAPSULE PO SCH (08:47)
[2017-11-29] MEDS: AMIODARONE HCL 200 MG TABLET PO SCH (08:49)
[2017-11-29] MEDS ORDERED: DEXTROSE 50% WATER 50ML SYRINGE IV PRN (11:30)
[2017-11-29] MEDS: METHYLPREDNISOLONE SOD SUCC 40 MG/ML VIAL IV SCH ×2 (13:14→22:31)
[2017-11-29 14:07] LABS: NUCLEATED RED BLOOD CELLS 2 /100 WBC; PLATELET ESTIMATE DECREASED
[2017-11-29 16:14] LABS: BG BASE EXCESS -1.8 mmol/L (-2.0-2.0); BG CARBOXYHEMOGLOBIN 0.7 % (0.5-1.5); BG DEOXYHEMOGLOBIN 1.2 % (0.0-5.0); BG HCO3 ACT 21.8 mmol/L (22.0-26.0); BG METHEMOGLOBIN 0.1 % (0.0-1.5); BG OXYGEN SATURATION 98.8 % (92.0-98.5); BG PCO2 32.4 mmHg (35.0-45.0); BG PH 7.445 (7.350-7.450); BG PO2 114.9 mmHg (75.0-100.0); BG SAMPLE SITE RIGHT BRACHIAL; BG TOTAL HEMOGLOBIN 9.2 g/dL (12.0-18.0); BG VENT MODE NASAL CANNULA
[2017-11-29] MEDS: ATORVASTATIN CALCIUM 20MG TABLET PO SCH (21:11)
[2017-11-30] VITALS (13 sets, daily range): BP systolic 92–122; BP diastolic 57–75
[2017-11-30] MEDS: IPRATROPIUM/ALBUTEROL 0.5-3(2.5)MG/3ML NEB HHN SCH ×7 (00:11→23:28)
[2017-11-30] MEDS: ACETYLCYSTEINE 100MG/ML 10% VIAL 4ML INH SCH ×3 (00:11→17:19)
[2017-11-30] MEDS: METHYLPREDNISOLONE SOD SUCC 40 MG/ML VIAL IV SCH ×3 (06:23→22:29)
[2017-11-30] MEDS: BLOOD SUGAR DIAGNOSTIC STRIP TEST SCH ×4 (06:25→21:28)
[2017-11-30] MEDS: INSULIN LISPRO 100 UNITS/ML SUBCUT SCH ×4 (06:25→21:31)
[2017-11-30 07:03] LABS: HEMATOCRIT. 25.6 % (42.0-52.0); HEMOGLOBIN. 7.8 g/dL (14.0-18.0); MEAN CORPUSCULAR HEMOGLOBIN 25.9 pg (28.0-32.0); MEAN CORPUSCULAR VOLUME 85.3 fL (80.0-94.0); RED BLOOD CELL COUNT 3.01 mill/uL (4.7-6.1); RED CELL DISTRIBUTION WIDTH 19.3 % (11.6-14.6)
[2017-11-30] MEDS: AMIODARONE HCL 200 MG TABLET PO SCH (08:23)
[2017-11-30] MEDS: EZETIMIBE 10MG TABLET PO SCH (08:24)
[2017-11-30] MEDS: GABAPENTIN 300MG CAPSULE PO SCH ×3 (08:24→17:35)
[2017-11-30] MEDS: DOCUSATE SODIUM 250MG CAPSULE PO SCH (08:24)
[2017-11-30] MEDS: AMLODIPINE 2.5MG TABLET PO SCH (09:00)
[2017-11-30] MEDS: CARVEDILOL 6.25 MG TABLET PO SCH ×2 (09:00→21:23)
[2017-11-30] MEDS: GUAIFENESIN 600MG ER TABLET PO SCH ×2 (10:21→21:22)
[2017-11-30] MEDS: FINASTERIDE 5MG TABLET PO SCH (10:22)
[2017-11-30] MEDS: TAMSULOSIN HCL 0.4MG SR CAPSULE PO SCH (10:22)
[2017-11-30 10:57] LABS: PLATELET ESTIMATE MARKEDLY DECREASED
[2017-11-30 10:58] LABS: MEAN PLATELET VOLUME 8.8 fl (7.4-10.4); PLATELET 44 x1000/uL (130-400)
[2017-11-30] MEDS ORDERED: INSULIN LISPRO 100 UNITS/ML SUBCUT NR (12:15)
[2017-11-30 13:09] LABS: DRVVT LA 61.6 sec (0.0-47.0); DRVVT MIX LA 46.4 sec (0.0-47.0); PTT-LA 72.8 sec (0.0-51.9)
[2017-11-30] MEDS: MAGNESIUM HYDROXIDE 400MG/5ML 30ML UDC PO PRN (17:33)
[2017-11-30] MEDS: ATORVASTATIN CALCIUM 20MG TABLET PO SCH (21:22)
[2017-11-30] MEDS ORDERED: FUROSEMIDE 40MG/4ML VIAL IVP NR (22:17)
[2017-11-30] MEDS: INSULIN GLARGINE UD 100 UNITS/ML SYR SUBCUT SCH (22:30)
[2017-12-01] VITALS (19 sets, daily range): BP systolic 56–113; BP diastolic 27–72
[2017-12-01] MEDS: IPRATROPIUM/ALBUTEROL 0.5-3(2.5)MG/3ML NEB HHN SCH ×5 (03:29→21:40)
[2017-12-01] MEDS: METHYLPREDNISOLONE SOD SUCC 40 MG/ML VIAL IV SCH (05:50)
[2017-12-01] MEDS: BLOOD SUGAR DIAGNOSTIC STRIP TEST SCH ×4 (05:52→20:25)
[2017-12-01 06:45] LABS: HEMATOCRIT. 28.5 % (42.0-52.0); HEMOGLOBIN. 8.8 g/dL (14.0-18.0); MEAN CORPUSCULAR HEMOGLOBIN 26.1 pg (28.0-32.0); MEAN CORPUSCULAR VOLUME 84.3 fL (80.0-94.0); RED BLOOD CELL COUNT 3.38 mill/uL (4.7-6.1); RED CELL DISTRIBUTION WIDTH 18.9 % (11.6-14.6)
[2017-12-01] MEDS: INSULIN LISPRO 100 UNITS/ML SUBCUT SCH ×4 (07:20→21:00)
[2017-12-01 07:45] LABS: BG BASE EXCESS -0.7 mmol/L (-2.0-2.0); BG CARBOXYHEMOGLOBIN 0.8 % (0.5-1.5); BG DEOXYHEMOGLOBIN 17.4 % (0.0-5.0); BG METHEMOGLOBIN 0.4 % (0.0-1.5); BG OXYGEN SATURATION 82.4 % (92.0-98.5); BG OXYHEMOGLOBIN 81.4 % (94.0-97.0); BG PCO2 29.2 mmHg (35.0-45.0); BG PH 7.494 (7.350-7.450); BG SAMPLE SITE LEFT BRACHIAL; BG TOTAL HEMOGLOBIN 9.7 g/dL (12.0-18.0); BG VENT MODE NASAL CANNULA
[2017-12-01] MEDS ORDERED: HEPARIN SODIUM 1,000 UNIT/1ML VIAL IV NR (09:00)
[2017-12-01] MEDS: ACETYLCYSTEINE 100MG/ML 10% VIAL 4ML INH SCH ×2 (09:52→17:55)
[2017-12-01 10:12] LABS: HEXAGONAL PHASE PHOSPHOLIPID 14 sec (0-11); LUPUS ANTICOAG INTERPRETATION Comment: (.)
[2017-12-01] MEDS ORDERED: METHYLPREDNISOLONE SOD SUCC 40 MG/ML VIAL IV NR (11:00)
[2017-12-01] MEDS: INSULIN GLARGINE UD 100 UNITS/ML SYR SUBCUT SCH (11:28)
[2017-12-01] MEDS: GUAIFENESIN 600MG ER TABLET PO SCH ×2 (11:31→20:25)
[2017-12-01] MEDS: EZETIMIBE 10MG TABLET PO SCH (11:31)
[2017-12-01] MEDS: DOCUSATE SODIUM 250MG CAPSULE PO SCH (11:31)
[2017-12-01] MEDS: GABAPENTIN 300MG CAPSULE PO SCH ×3 (11:31→16:16)
[2017-12-01] MEDS: TAMSULOSIN HCL 0.4MG SR CAPSULE PO SCH (11:31)
[2017-12-01] MEDS: AMIODARONE HCL 200 MG TABLET PO SCH (11:32)
[2017-12-01] MEDS: FINASTERIDE 5MG TABLET PO SCH (11:32)
[2017-12-01 12:08] LABS: BG BASE EXCESS -3.2 mmol/L (-2.0-2.0); BG CARBOXYHEMOGLOBIN 0.3 % (0.5-1.5); BG DEOXYHEMOGLOBIN 2.1 % (0.0-5.0); BG FRACTION INSPIRED OXYGEN 100; BG HCO3 ACT 19.1 mmol/L (22.0-26.0); BG METHEMOGLOBIN 0.3 % (0.0-1.5); BG OXYGEN SATURATION 97.9 % (92.0-98.5); BG OXYHEMOGLOBIN 97.3 % (94.0-97.0); BG PCO2 25.7 mmHg (35.0-45.0); BG PH 7.489 (7.350-7.450); BG PO2 106.2 mmHg (75.0-100.0); BG SAMPLE SITE RIGHT BRACHIAL; BG TOTAL HEMOGLOBIN 10.1 g/dL (12.0-18.0); BG VENT MODE MASK - NRB
[2017-12-01 14:07] LABS: NUCLEATED RED BLOOD CELLS 1 /100 WBC; PLATELET ESTIMATE MARKEDLY DECREASED
[2017-12-01 14:14] LABS: MEAN PLATELET VOLUME 8.6 fl (7.4-10.4); PLATELET 24 x1000/uL (130-400)
[2017-12-01] MEDS ORDERED: SODIUM POLYSTYRENE SULFONATE 15 G/60 ML BOT PO NR (15:30)
[2017-12-01] MEDS: MAGNESIUM HYDROXIDE 400MG/5ML 30ML UDC PO PRN (17:07)
[2017-12-01] MEDS: ATORVASTATIN CALCIUM 20MG TABLET PO SCH (20:26)
[2017-12-01] MEDS ORDERED: CARVEDILOL 6.25 MG TABLET PO SCH (21:00)
[2017-12-01] MEDS ORDERED: METHYLPREDNISOLONE SOD SUCC 40 MG/ML VIAL IV SCH (22:00)
[2017-12-01 23:08] LABS: BG CARBOXYHEMOGLOBIN 0.3 % (0.5-1.5); BG DEOXYHEMOGLOBIN 15.1 % (0.0-5.0); BG FRACTION INSPIRED OXYGEN 100; BG HCO3 ACT 20.5 mmol/L (22.0-26.0); BG METHEMOGLOBIN 0.1 % (0.0-1.5); BG OXYGEN SATURATION 84.8 % (92.0-98.5); BG OXYHEMOGLOBIN 84.5 % (94.0-97.0); BG PCO2 27.4 mmHg (35.0-45.0); BG PH 7.492 (7.350-7.450); BG PO2 49.3 mmHg (75.0-100.0); BG SAMPLE SITE RIGHT BRACHIAL; BG TOTAL HEMOGLOBIN 9.4 g/dL (12.0-18.0); BG VENT MODE MASK - NRB
[2017-12-02] VITALS: BP 53/26
[2017-12-02] MEDS ORDERED: METHYLPREDNISOLONE SOD SUCC 125 MG/2 ML VIAL IV SCH
[2017-12-02] MEDS: NOREPINEPHRINE 8 MG in DEXT 5% WATER 242 ML IV PRN ×2 (00:05→00:20)
[2017-12-02 00:08] VITALS: BP 45/26
[2017-12-02 00:17] LABS: BG BASE EXCESS -7.8 mmol/L (-2.0-2.0); BG CARBOXYHEMOGLOBIN 0.2 % (0.5-1.5); BG DEOXYHEMOGLOBIN 54.6 % (0.0-5.0); BG FRACTION INSPIRED OXYGEN 100; BG HCO3 ACT 20.9 mmol/L (22.0-26.0); BG METHEMOGLOBIN 0.3 % (0.0-1.5); BG OXYGEN SATURATION 45.1 % (92.0-98.5); BG OXYHEMOGLOBIN 44.9 % (94.0-97.0); BG PCO2 60.3 mmHg (35.0-45.0); BG PH 7.158 (7.350-7.450); BG PO2 35.3 mmHg (75.0-100.0); BG SAMPLE SITE LEFT BRACHIAL; BG TIDAL VOLUME(mL) 550 mL; BG TOTAL HEMOGLOBIN 9.2 g/dL (12.0-18.0); BG VENT MODE VENT - A/C; BG VENT RATE 14 set
[2017-12-02] MEDS ORDERED: CARVEDILOL 3.125 MG TABLET PO SCH ×2 (00:18→09:00)
[2017-12-02] MEDS ORDERED: SUCCINYLCHOLINE CHLORIDE 200MG/10ML VIAL IV ONE (00:30)
[2017-12-02] MEDS ORDERED: CALCIUM CHLORIDE 1GM/10ML SYR IV ONE (00:30)
[2017-12-02] MEDS ORDERED: SODIUM BICARBONATE 7.5% 0.9 MEQ/ML 50ML SYR IV ONE (00:30)
[2017-12-02] MEDS ORDERED: EPINEPHRINE 0.1MG/ML (1:10,000) 10ML SYR ONE (00:30)
[2017-12-02] MEDS ORDERED: ETOMIDATE 2MG/ML 10ML VIAL IV ONE (00:30)
== END 2017-12-02 00:40 | disposition expired | DRG 208 ==
LOC: ER 13:24 → 6WST 15:10 → ENRESERV 11-23 00:43 → 3WST 11-27 18:41 → MICUSO 12-01 22:50
PROVIDERS: ADMIT Hospitalist; ATTEND Hospitalist
PROC: 4B02XTZ Measurement of Cardiac Defibrillator, External Approach (ICD-10-PCS; 2017-11-24)
PROC: 02HV33Z Insertion of Infusion Device into Superior Vena Cava, Percutaneous Approach (ICD-10-PCS; 2017-11-25)
PROC: B5181ZA Fluoroscopy of Superior Vena Cava using Low Osmolar Contrast, Guidance (ICD-10-PCS; 2017-11-25)
PROC: B548ZZA Ultrasonography of Superior Vena Cava, Guidance (ICD-10-PCS; 2017-11-25)
PROC: 5A1D70Z Performance of Urinary Filtration, Intermittent, Less than 6 Hours Per Day (ICD-10-PCS; 2017-11-25)
PROC: 5A1D70Z Performance of Urinary Filtration, Intermittent, Less than 6 Hours Per Day (ICD-10-PCS; 2017-11-26)
PROC: 30233N1 Transfusion of Nonautologous Red Blood Cells into Peripheral Vein, Percutaneous Approach (ICD-10-PCS; 2017-11-27)
PROC: 5A1D70Z Performance of Urinary Filtration, Intermittent, Less than 6 Hours Per Day (ICD-10-PCS; 2017-11-27)
PROC: 02H633Z Insertion of Infusion Device into Right Atrium, Percutaneous Approach (ICD-10-PCS; 2017-11-28)
PROC: B2141ZZ Fluoroscopy of Right Heart using Low Osmolar Contrast (ICD-10-PCS; 2017-11-28)
PROC: 02PYX3Z Removal of Infusion Device from Great Vessel, External Approach (ICD-10-PCS; 2017-11-28)
PROC: 0W993ZZ Drainage of Right Pleural Cavity, Percutaneous Approach (ICD-10-PCS; 2017-11-28)
PROC: 30233R1 Transfusion of Nonautologous Platelets into Peripheral Vein, Percutaneous Approach (ICD-10-PCS; 2017-11-28)
PROC: 5A1D70Z Performance of Urinary Filtration, Intermittent, Less than 6 Hours Per Day (ICD-10-PCS; 2017-11-28)
PROC: 5A1D70Z Performance of Urinary Filtration, Intermittent, Less than 6 Hours Per Day (ICD-10-PCS; 2017-11-29)
PROC: 5A1D70Z Performance of Urinary Filtration, Intermittent, Less than 6 Hours Per Day (ICD-10-PCS; 2017-11-30)
PROC: 0BH17EZ Insertion of Endotracheal Airway into Trachea, Via Natural or Artificial Opening (ICD-10-PCS; principal; 2017-12-01)
PROC: 5A1935Z Respiratory Ventilation, Less than 24 Consecutive Hours (ICD-10-PCS; 2017-12-01)
PROC: 5A1D70Z Performance of Urinary Filtration, Intermittent, Less than 6 Hours Per Day (ICD-10-PCS; 2017-12-01)
PROC: 5A12012 Performance of Cardiac Output, Single, Manual (ICD-10-PCS; 2017-12-02)
DX: J96.01 Acute respiratory failure with hypoxia (principal); N17.0 Acute kidney failure with tubular necrosis; E43 Unspecified severe protein-calorie malnutrition; I13.2 Hypertensive heart and chronic kidney disease with heart failure and with stage 5 chronic kidney disease, or end stage renal disease; J18.9 Pneumonia, unspecified organism; D61.818 Other pancytopenia; E11.22 Type 2 diabetes mellitus with diabetic chronic kidney disease; E11.51 Type 2 diabetes mellitus with diabetic peripheral angiopathy without gangrene; I50.23 Acute on chronic systolic (congestive) heart failure; N18.6 End stage renal disease; I27.20 Pulmonary hypertension, unspecified; M32.9 Systemic lupus erythematosus, unspecified; I77.6 Arteritis, unspecified; R62.7 Adult failure to thrive; I25.5 Ischemic cardiomyopathy; E78.5 Hyperlipidemia, unspecified; I25.10 Atherosclerotic heart disease of native coronary artery without angina pectoris; I48.91 Unspecified atrial fibrillation; K27.9 Peptic ulcer, site unspecified, unspecified as acute or chronic, without hemorrhage or perforation; K59.00 Constipation, unspecified; M13.88 Other specified arthritis, other site; N40.0 Benign prostatic hyperplasia without lower urinary tract symptoms; Z79.01 Long term (current) use of anticoagulants; Z79.02 Long term (current) use of antithrombotics/antiplatelets; Z87.11 Personal history of peptic ulcer disease; Z99.2 Dependence on renal dialysis; Z95.810 Presence of automatic (implantable) cardiac defibrillator; Z87.891 Personal history of nicotine dependence; Z95.1 Presence of aortocoronary bypass graft; I25.2 Old myocardial infarction; Z95.5 Presence of coronary angioplasty implant and graft; Z79.82 Long term (current) use of aspirin; Z79.84 Long term (current) use of oral hypoglycemic drugs; Z79.899 Other long term (current) drug therapy; Z68.25 Body mass index [BMI] 25.0-25.9, adult
CPT/HCPCS: 31500; 32555; 36415; 36556; 36558; 36589; 36600; 71045; 75827; 76604; 76770; 76937; 77001; 80048; 80053; 81001; 82040; 82375; 82550; 82570; 82805; 82945; 82962; 83615; 83735; 83935; 84100; 84157; 84550; 85025; 85610; 85613; 85660; 85730; 85732; 86038; 86160; 86431; 86705; 86709; 86803; 86850; 86900; 86920; 86945; 87070; 87205; 87340; 89050; 93005; 93306; 93970; 94002; 94640; 96360; 96361; 99285; C1725; C1750; C1752; C1769; C1887; J0171; J0330; J0690; J1642; J1644; J1815; J1940; J2920; J2930; J3010; J3490; J7030; J7040; J7050; J7608; J7620; P9016; P9034; Q0163; Q9967; A4315